=== PATIENT | male | born 1955 | race Caucasian/White ===

== ENCOUNTER 2016-08-10 23:37 | Emergency (ER) | payer OTHER ==
--- NOTE | 2016-08-11 00:14 | EDM.PDOC ---
ED HPI Trauma - General Chief Complaint: Lower Extremity Injury/Pain Stated Complaint: "Right knee pain" Time Seen by Provider: 08/11/16 00:08 Source: Reports: Patient History Limitations: Reports: No limitations - History of Present Illness INITIAL COMMENTS - FREE TEXT/NARRATIVE: Injured his knee 5 years ago. Is having trouble performing his job due to knee pain, want orders for accomidation. Occurred Where: work Method of Injury: unknown Severity: moderate Pain/Injury Location: Reports: upper extremity, right Consciousness: Reports: no loss of consciousness Associated Symptoms: Reports: no other symptoms Review of Systems - Review of Systems Review Of Systems: See Below Constitutional: Reports: no symptoms Eyes: Reports: no symptoms Ears: Reports: no symptoms Nose: Reports: no symptoms Mouth/Throat: Reports: no symptoms Respiratory: Reports: No Symptoms Cardiovascular: Reports: no symptoms GI/Abdominal: Reports: No symptoms Genitourinary: Reports: no symptoms Musculoskeletal: Reports: joint swelling Skin: Reports: no symptoms Neurological: Reports: No Symptoms Psychiatric: Reports: no symptoms Trauma Exam - Physical Exam Exam: See Below Exam Limited By: No limitations General Appearance: Reports: alert, no apparent distress Head: Reports: atraumatic, normocephalic Ears: Reports: normal external exam, normal canal Nose: Reports: normal inspection, normal mucousa Throat/Mouth: Reports: Normal inspection Neck: Reports: non-tender Respiratory Exam: Reports: no respiratory distress Cardiovascular: Reports: normal peripheral pulses GI/Abdominal: Reports: normal bowel sounds Extremities: Reports: joint effusion, pain with movement Skin: Reports: Normal color, Warm/dry Departure - Departure Time of Disposition: 00:11 (Patient instructe that he will need to follow up with his primary care doctor for workman comp orders and follow-up) Disposition: Home, Self-Care 01 Condition: good Clinical Impression: Sprain of knee Forms: ED Department Discharge Additional Instructions: follow up with your regular doctor. Return to ER as needed.
[2016-08-11 02:56] VITALS: BP 150/88
== END 2016-08-11 00:55 | disposition home or self-care (01) ==
LOC: MERGE 23:37 → CC.ED 23:37
DX: S83.91XA Sprain of unspecified site of right knee, initial encounter (principal); X58.XXXA Exposure to other specified factors, initial encounter; Y99.0 Civilian activity done for income or pay
CPT/HCPCS: 99283

== ENCOUNTER 2017-01-15 15:11 | Emergency (ER) | payer OTHER ==
[2017-01-15 15:26] VITALS: BP 137/84
--- NOTE | 2017-01-15 15:43 | EDM.PDOC ---
ED HPI GENERAL MEDICAL PROBLEM - General Chief Complaint: Skin Complaint Stated Complaint: PAINFUL RASH Time Seen by Provider: 01/15/17 15:35 Source of Information: Reports: Patient History Limitations: Reports: No Limitations - History of Present Illness INITIAL COMMENTS - FREE TEXT/NARRATIVE: Started with rash to the right anterior chest wall and is spreading around to the back. Does have some burning with it . Has not taken anything for it. NO other rash and feels well otherwise. Onset: Gradual Location: Reports: Chest, Back Quality: Reports: Other (burning) Associated Symptoms: Denies: Fever/Chills Right Upper Abdomen Pain Score (Numeric/FACES): 6 - Related Data Allergies Allergy/AdvReac Type Severity Reaction Status Date / Time nicotine Allergy Cough Verified 01/15/17 15:16 Past Medical History Respiratory History: Reports: COPD Other Musculoskeletal History: wrist surgeries. - Past Surgical History HEENT Surgical History: Reports: Laser Surgery Social & Family History - Tobacco Use Smoking Status *Q: Current Every Day Smoker Years of Tobacco use: 40 Packs/Tins Daily: 1 Used Tobacco, but Quit: No - Alcohol Use Days Per Week of Alcohol Use: 7 Number of Drinks Per Day: 2 Total Drinks Per Week: 14 - Recreational Drug Use Recreational Drug Use: No ED ROS GENERAL - Review of Systems Review Of Systems: See Below Constitutional: Denies: Fever, Chills Respiratory: Reports: No Symptoms Cardiovascular: Reports: No Symptoms GI/Abdominal: Reports: No Symptoms Skin: Reports: Other (blister rash under right nipple that radiates around to the back in the same dermatome. Raised and red and in patches. Not open or draining at this time.) ED EXAM, SKIN/RASH Exam: See Below Exam Limited By: No Limitations General Appearance: Alert, Mild Distress Skin: Warm, Dry, Intact, Other (blistering rash from under right nipple to the spine posteriorly. Red and raised and in patches. No open areas or draiange noted to the area.) Course - Vital Signs Last Recorded V/S: Last Vital Signs Temp 97.3 F 01/15/17 15:18 Pulse 72 01/15/17 15:18 Resp 18 01/15/17 15:18 BP 137/84 01/15/17 15:18 Pulse Ox 95 01/15/17 15:18 Departure - Departure Time of Disposition: 15:41 Disposition: Home, Self-Care 01 Condition: Good Clinical Impression: Shingles Qualifiers: Herpes zoster complications: without complications Qualified Code(s): B02.9 - Zoster without complications - Discharge Information Instructions: Shingles, [id number] Additional Instructions: good handwashing Avoid people with chemo, women and any one with immunocompromised systems. Valtrex 1000 mg every 8 hours for 7 days. Should get shingles vaccine in about 6 months - Problem List & Annotations (1) Shingles SNOMED Code(s): 8678920 Code(s): B02.9 - ZOSTER WITHOUT COMPLICATIONS Status: Acute Priority: High Current Visit: Yes Qualifiers: Herpes zoster complications: without complications Qualified Code(s): B02.9 - Zoster without complications - Problem List Review Problem List Initiated/Reviewed/Updated: Yes
== END 2017-01-15 15:53 | disposition home or self-care (01) ==
LOC: CC.ED 15:11
DX: B02.9 Zoster without complications (principal); J44.9 Chronic obstructive pulmonary disease, unspecified; F17.210 Nicotine dependence, cigarettes, uncomplicated; Z88.8 Allergy status to other drugs, medicaments and biological substances
CPT/HCPCS: 99283

== ENCOUNTER 2017-03-12 18:45 | Emergency (ER) | payer OTHER ==
[2017-03-12] MEDS ORDERED: Doxycycline 100 MG Tab PO ONE (18:46)
[2017-03-12 18:54] VITALS: BP 132/93
--- NOTE | 2017-03-12 19:09 | EDM.PDOC ---
ED HPI GENERAL MEDICAL PROBLEM - General Chief Complaint: General Stated Complaint: sore throat, cough Time Seen by Provider: 03/12/17 18:58 Source of Information: Reports: Patient, RN History Limitations: Reports: No Limitations - History of Present Illness Onset: Gradual Onset Date: 03/09/17 Duration: Day(s):, Getting Worse, Waxing/Waning Location: Reports: Head, Chest Quality: Reports: Other (coughing, more short of breath and chest heavy. No chest pain) Improves with: Reports: None Worsens with: Reports: Movement Associated Symptoms: Reports: Cough, cough w sputum, Fever/Chills, Headaches ( patient always has a dull headache but it is worse than normal.), Shortness of Breath. Denies: Chest Pain, Diaphoresis, Malaise, Nausea/Vomiting, Syncope Treatments BOX TOE STITCHER: Reports: Other (see below) (is supposed to be on inhalers but does not use them. smokes 1/2 to 1 1/2 packs per day for the last fifty years per pt report) Throat Pain Score (Numeric/FACES): 9 - Related Data Allergies Allergy/AdvReac Type Severity Reaction Status Date / Time nicotine Allergy Cough Verified 03/12/17 18:54 Home Meds: Home Meds . [No Known Home Meds] 03/12/17 [History] Past Medical History Respiratory History: Reports: COPD Musculoskeletal History: Reports: Osteoarthritis Other Musculoskeletal History: wrist surgeries. Neurological History: Reports: Migraines - Infectious Disease History Infectious Disease History: Reports: Shingles - Past Surgical History HEENT Surgical History: Reports: Laser Surgery GI Surgical History: Reports: Appendectomy, Hernia Repair/Other Other GI Surgeries/Procedures: Inguinal hernia-repaired 1982 Musculoskeletal Surgical History: Reports: Arthroscopic Knee Social & Family History - Family History Family Medical History: Noncontributory - Tobacco Use Smoking Status *Q: Current Every Day Smoker Years of Tobacco use: 50 Packs/Tins Daily: 1 Used Tobacco, but Quit: No Second Hand Smoke Exposure: Yes - Caffeine Use Caffeine Use: Reports: Coffee - Alcohol Use Days Per Week of Alcohol Use: 7 Number of Drinks Per Day: 3 Total Drinks Per Week: 21 - Recreational Drug Use Recreational Drug Use: No ED ROS GENERAL - Review of Systems Review Of Systems: See Below Constitutional: Reports: Chills. Denies: Malaise, Weakness, Diaphoresis HEENT: Reports: Glasses, Rhinitis, Sinus Problem, Throat Pain. Denies: Ear Discharge, Ear Pain, Eye Pain, Vertigo, Vision Change Respiratory: Reports: Shortness of Breath, Cough, Sputum (increased amounts of clear to cloudy phlegm over the last four days) Cardiovascular: Denies: Chest Pain, Edema, Lightheadedness, Orthopnea, Palpitations Endocrine: Reports: No Symptoms GI/Abdominal: Reports: Abdominal Pain (mild periumbilical abdominal pain earlier today but better now, worse with coughing). Denies: Black Stool, Bloody Stool, Constipation, Diarrhea, Nausea, Vomiting : Reports: No Symptoms Musculoskeletal: Reports: Neck Pain (chronic neck pain no different than normal) Skin: Reports: No Symptoms Neurological: Reports: No Symptoms Psychiatric: Reports: No Symptoms Hematologic/Lymphatic: Reports: No Symptoms Immunologic: Reports: No Symptoms ED EXAM, GENERAL - Physical Exam Exam: See Below Exam Limited By: No Limitations General Appearance: Alert, WD/WN, No Apparent Distress Eye Exam: Bilateral Eye: EOMI, PERRL Ears: Normal External Exam, Normal Canal, Hearing Grossly Normal, Normal TMs Ear Exam: Bilateral Ear: Auricle Normal, Canal Normal, TM normal Nose: Nasal Swelling, Nasal Drainage, Clear Rhinorrhea Throat/Mouth: Normal Lips, Normal Teeth, Normal Gums, Normal Voice, No Airway Compromise, Other (posterior oropharynx and tonsils reddened and mildy swollen with exudate on the right tonsill) Head: Atraumatic, Normocephalic Neck: Normal Inspection, Supple, Non-Tender, Full Range of Motion. No: Lymphadenopathy (L), Lymphadenopathy (R) Respiratory/Chest: No Accessory Muscle Use, Wheezing, Prolonged Expiration, Other (inspiratory and expiratory wheezing with prolonged expiratory phase, O2 sat 97% on room air, No respiratory distress. No rhonchi or rales but lungs very coarse especially in the lateral lung [place]. Harsh hacky cough productive of clear phlegm.). No: Accessory Muscle Use, Retractions Cardiovascular: Normal Peripheral Pulses, Regular Rate, Rhythm, No Edema, No Gallop, No JVD, No Murmur, No Rub Peripheral Pulses: 2+: Radial (L) (Male) Exam: Deferred Rectal (Males) Exam: Deferred Back Exam: Normal Inspection, Full Range of Motion, NT Extremities: Normal Inspection, Normal Range of Motion, Non-Tender, No Pedal Edema Neurological: Alert, Oriented, CN II-XII Intact, Normal Cognition, Normal Gait, Normal Reflexes, No Motor/Sensory Deficits Psychiatric: Normal Affect, Normal Mood Skin Exam: Warm, Dry, Intact, Normal Color, No Rash Lymphatic: No Adenopathy Course - Vital Signs Last Recorded V/S: Last Vital Signs Temp 37.4 C 03/12/17 18:48 Pulse 94 03/12/17 18:48 Resp 20 03/12/17 18:48 BP 132/93 H 03/12/17 18:48 Pulse Ox 97 03/12/17 18:48 - Orders/Labs/Meds Meds: Medications Discontinued Medications Generic Name Dose Route Start Last Admin Trade Name Dayron PRN Reason Stop Dose Admin Doxycycline Monohydrate 1 packet 03/12/17 19:34 03/12/17 19:37 Take Home: Doxycycline 100 Mg, 4 Tab Pack PO 03/12/17 19:35 1 packet ONETIME ONE Administration - Re-Assessments/Exams Free Text/Narrative Re-Assessment/Exam: 03/12/17 19:26 Patient examined and labs done. Strep is negatve. Patient will be place on doxycycline for ten days. He is to use his albuterol inhaler he has at home. He is to be rechecked if not feeling better by Wednesday or certainly sooner if he gets any worse before then. Departure - Departure Time of Disposition: 19:40 Disposition: Home, Self-Care 01 Condition: Good Clinical Impression: Acute exacerbation of chronic bronchitis Pharyngitis Qualifiers: Pharyngitis/tonsillitis etiology: unspecified etiology Qualified Code(s): J02.9 - Acute pharyngitis, unspecified - Discharge Information Instructions: Acute Bronchitis Referrals: PCP,None [Primary Care Provider] - Forms: ED Department Discharge, ED Return to Work/School Form Additional Instructions: Take doxycycline 100 mg twice daily. Use your albuterol inhaler 2 puffs every four hours, at least four times a day. Use ibuprofen 600 mg every 6-8 hours for pain. Take with food. You may alternate with tylenol. Take an over the counter probiotic supplement or eat yogurt daily while on the antibiotic to help prevent diarrhea. Recheck in the clinic wednesday if youre not feeling better by then. If you get any worse over the weekend, please return to ER.
[2017-03-12] MEDS ORDERED: Take Home: Doxycycline 100 MG Tab, 4 Tab Pack PO ONE (19:34)
== END 2017-03-12 19:45 | disposition home or self-care (01) ==
LOC: CC.ED 18:45
DX: J42 Unspecified chronic bronchitis (principal); J02.9 Acute pharyngitis, unspecified; F17.210 Nicotine dependence, cigarettes, uncomplicated
CPT/HCPCS: 87430; 87804; 99283; A9270

== ENCOUNTER 2017-07-04 16:58 | Emergency (ER) | payer OTHER ==
[2017-07-04] MEDS ORDERED: Codeine/Promethazine 10-6.25 MG/5 ML Syrup 5 ML UD Cup PO ONE ×2 (16:59→17:40)
[2017-07-04 17:03] VITALS: BP 109/86
[2017-07-04 17:37] LABS: CHLORIDE,CL 102 mEq/L (98-106); SODIUM,NA 140 mEq/L (136-145)
[2017-07-04] MEDS ORDERED: methylPREDNISolone Acetate 80 MG/ML SDV IM ONE (17:40)
[2017-07-04] MEDS ORDERED: Lidocaine 1% 20 ML MDV INJECT ONE (17:44)
[2017-07-04] MEDS ORDERED: Take Home: Codeine/Promethazine 10-6.25 MG/5 ML Syrup 5 ML, 2 Cup Pack PO ONE (17:44)
[2017-07-04] MEDS ORDERED: cefTRIAXone 1 GM Vial IVPUSH SCH (17:45)
--- NOTE | 2017-07-04 17:45 | EDM.PDOC ---
ED HPI GENERAL MEDICAL PROBLEM - General Chief Complaint: Respiratory Problem Stated Complaint: cough, SOB Time Seen by Provider: 07/04/17 17:15 Source of Information: Reports: Patient History Limitations: Reports: No Limitations - History of Present Illness INITIAL COMMENTS - FREE TEXT/NARRATIVE: Patient presents with complaints of cough. States when awoke this am, has had frequent ongoing cough. Recent concerns with sinus congestion and drainage but cough worse today. Patient relates he does have a chronic smoker's cough but never like this. Is frequent and tight. Patient denies fevers. Went to work at the [employer] and cough got much worse. He does have a history of COPD. Hasn't noted any wheezing. He believes he is developing an allergy to cardboard boxes. He handled 3 of them last night and his hands were red and itchy and has been happening like this more often. Not sure if that may have triggered the cough. Does feel short of breath as well. Onset: Today Duration: Hour(s):, Getting Worse Location: Reports: Chest Improves with: Reports: Rest Worsens with: Reports: Movement Associated Symptoms: Reports: Chest Pain, Cough, cough w sputum, Shortness of Breath. Denies: Fever/Chills, Loss of Appetite, Nausea/Vomiting, Weakness Mid-Sternal Pain Score (Numeric/FACES): 5 - Related Data Allergies Allergy/AdvReac Type Severity Reaction Status Date / Time nicotine Allergy Cough Verified 07/04/17 17:04 Home Meds: Home Meds . [No Known Home Meds] 03/12/17 [History] Past Medical History Respiratory History: Reports: COPD Musculoskeletal History: Reports: Osteoarthritis Other Musculoskeletal History: wrist surgeries. Neurological History: Reports: Migraines - Infectious Disease History Infectious Disease History: Reports: Shingles - Past Surgical History HEENT Surgical History: Reports: Laser Surgery GI Surgical History: Reports: Appendectomy, Hernia Repair/Other Other GI Surgeries/Procedures: Inguinal hernia-repaired 1982 Musculoskeletal Surgical History: Reports: Arthroscopic Knee Social & Family History - Family History Family Medical History: Noncontributory - Tobacco Use Smoking Status *Q: Current Every Day Smoker Years of Tobacco use: 50 Packs/Tins Daily: 1 Used Tobacco, but Quit: No Second Hand Smoke Exposure: Yes - Caffeine Use Caffeine Use: Reports: Coffee - Alcohol Use Days Per Week of Alcohol Use: 7 Number of Drinks Per Day: 3 Total Drinks Per Week: 21 - Recreational Drug Use Recreational Drug Use: No ED ROS GENERAL - Review of Systems Review Of Systems: See Below Constitutional: Reports: Chills, Malaise, Fatigue. Denies: Fever, Weakness, Decreased Appetite HEENT: Reports: Rhinitis, Sinus Problem. Denies: Ear Pain, Throat Pain Respiratory: Reports: Shortness of Breath, Wheezing, Cough, Sputum Cardiovascular: Reports: Chest Pain. Denies: Edema, Lightheadedness Endocrine: Reports: Fatigue GI/Abdominal: Denies: Abdominal Pain, Black Stool, Bloody Stool, Nausea, Vomiting : Reports: No Symptoms Musculoskeletal: Reports: No Symptoms Skin: Reports: No Symptoms Neurological: Reports: No Symptoms ED EXAM, GENERAL - Physical Exam Exam: See Below Exam Limited By: No Limitations General Appearance: Alert, WD/WN, No Apparent Distress Ears: Normal External Exam, Normal TMs Nose: Normal Inspection, Normal Mucosa, Nasal Drainage, Clear Rhinorrhea Throat/Mouth: Normal Inspection, Normal Oropharynx Head: Normocephalic Neck: Normal Inspection, Supple, Non-Tender Respiratory/Chest: No Respiratory Distress, Lungs Clear, Other (ongoing frequent cough) Cardiovascular: Regular Rate, Rhythm GI/Abdominal: Normal Bowel Sounds, Soft, Non-Tender Neurological: Alert, Oriented Skin Exam: Warm, Dry Course - Vital Signs Last Recorded V/S: Last Vital Signs Temp 99.6 F 07/04/17 16:59 Pulse 106 H 07/04/17 16:59 Resp 20 07/04/17 16:59 BP 109/86 07/04/17 16:59 Pulse Ox 95 07/04/17 16:59 - Orders/Labs/Meds Orders: Active Orders 24 hr Category Date Time Status Chest 2V [CR] Stat Exams 07/04/17 17:09 Taken Labs: Laboratory Tests 07/04/17 07/04/17 Range/Units 17:10 17:10 WBC 7.8 (5.0-10.0) 10^3/uL RBC 4.97 (4.50-6.00) 10^6/uL Hgb 15.7 (14.0-18.0) g/dL Hct 47.9 (40.0-54.0) % MCV 96.4 H (82.0-94.0) fL MCH 31.6 (27.0-32.0) pg MCHC 32.8 L (33.0-38.0) g/dL RDW Coeff of Rayray 12.7 (11.0-15.0) % Plt Count 238 (150-400) 10^3/uL Neut % (Auto) 68.8 (35-85) % Lymph % (Auto) 16.3 (10-55) % Delta % (Auto) 12.7 (0-16) % Eos % (Auto) 1.7 (0-5) % Baso % (Auto) 0.5 (0-3) % Neut # (Auto) 5.36 (1.80-7.00) 10^3/uL Lymph # (Auto) 1.27 (1.00-4.80) 10^3/uL Delta # (Auto) 0.99 H (0.00-0.80) 10^3/uL Eos # (Auto) 0.13 (0.00-0.45) 10^3/uL Baso # (Auto) 0.04 10^3/uL Sodium 140 (136-145) mEq/L Potassium 4.0 (3.5-5.0) mEq/L Chloride 102 (98-106) mEq/L Carbon Dioxide 30 (21-32) mmol/L BUN 13 (7-18) mg/dL Creatinine 0.8 (0.7-1.3) mg/dL Est Cr Clr Drug Dosing 96.97 mL/min Estimated GFR (MDRD) > 60 (>=60) mL/min Glucose 105 H (75-99) mg/dL Calcium 8.7 (8.4-10.1) mg/dL Troponin I < 0.017 (0.00-0.06) ng/mL C-Reactive Protein < 0.2 L (0.2-0.8) mg/dL - Re-Assessments/Exams Free Text/Narrative Re-Assessment/Exam: 07/04/17 17:50 Labs and xray negative. Difficult to determine at this point if related to potential allergic reaction as patient voices concerns with his hands versus COPD exacerbation related to his recent upper respiratory symptoms. Given Rocephin, Depo Medrol and phenergan with codeine. Departure - Departure Time of Disposition: 17:51 Disposition: Home, Self-Care 01 Clinical Impression: Acute bronchitis - Discharge Information Referrals: PCP,None [Primary Care Provider] - Additional Instructions: 1. Rest 2. Push fluids 3. Tylenol or ibuprofen for fever or discomfort. 4. Start Zpack tomorrow 5. Phenergan with codeine- 1 to 2 tsp every 4-6 hours for cough as needed 6. Follow up with primary care provider/[facility] for any ongoing concerns. - My Orders Last 24 Hours: My Active Orders 07/04/17 17:09 Chest 2V [CR] Stat - Assessment/Plan Last 24 Hours: My Active Orders 07/04/17 17:09 Chest 2V [CR] Stat
== END 2017-07-04 18:10 | disposition home or self-care (01) ==
LOC: CC.ED 16:58
DX: J20.9 Acute bronchitis, unspecified (principal); J44.0 Chronic obstructive pulmonary disease with (acute) lower respiratory infection; F17.210 Nicotine dependence, cigarettes, uncomplicated; Z91.048 Other nonmedicinal substance allergy status
CPT/HCPCS: 36415; 71046; 80048; 84484; 85025; 86140; 87804; 93005; 96372; 99284; A9270-GY; J0696; J1040